=== PATIENT | female | born 1980 | race Hispanic/Latino ===

== ENCOUNTER 2016-10-13 14:27 | Emergency (ER) | payer SELFPAY ==
[~2016-10-13] VITALS: Ht 154.9 cm; Wt 70.5 kg
[2016-10-13 15:16] LABS: HEMATOCRIT 40.8 % (36.0-46.0); MCH 31.9 PG (29.0-34.0); MCHC 33.8 G/DL (30.0-36.0); MCV 94.4 FL (83-99); MEAN PLAT.VOLUME 9.8 uM^3 (9.5-12.4); PLATELET COUNT 276 K/uL (156-360); RBC DIS.WIDTH-CV 11.9 % (11.8-14.6); RBC DIS.WIDTH-SD 41.4 % (39-53); RED BLOOD COUNT 4.32 M/uL (3.80-5.20); WHITE BLOOD COUNT 7.7 K/uL (4.1-10.2)
[2016-10-13 15:21] LABS: ADD MIUA? YES; BILIRUBIN NEGATIVE; BLOOD MODERATE; COLOR STRAW ((YELLOW)); GLUCOSE (STRIP) NEGATIVE; KETONES NEGATIVE; LEUKOCYTES NEGATIVE; NITRITE NEGATIVE; PROTEIN (STRIP) NEGATIVE; SPECIFIC GRAVITY 1.004 (1.000-1.030); UROBILINOGEN 0.2 MG/DL (0.2-1.0)
[2016-10-13 15:24] LABS: BACTERIA RARE /HPF; EPITHELIAL CELLS RARE /HPF; MUCUS TRACE /LPF; RED BLOOD CELLS 0-5 /HPF (0-5); UCUL ADDED? NO; WHITE BLOOD CELLS 0-5 /HPF (0-5)
[2016-10-13 16:18] LABS: EOSINOPHIL (%) 0.4 % (0-5); IMMATURE GRANULOCYTE (%) 0.3 % (0.0-0.7); INSTRUMENT ABS NEUTROPHIL CT 5.1 K/uL; LYMPHOCYTE COUNT 1.8 K/uL (1.0-2.8); MONOCYTE (%) 5.8 % (3-12); MONOCYTE COUNT 0.4 K/uL (0-0.8); NEUTROPHIL COUNT 5.1 K/uL (1.8-6.4)
[2016-10-13 16:21] LABS: CHLORIDE 106 mEq/L (99-109); POTASSIUM 3.6 mEq/L (3.7-5.4); SODIUM 138 mEq/L (136-147)
[2016-10-13 16:23] LABS: GLUCOSE 107 mg/dL (70-99)
[2016-10-13 16:25] LABS: ANION GAP 10 MEQ/L (2-14); TOTAL BILIRUBIN 0.5 mg/dL (0.0-1.0)
[2016-10-13 16:27] LABS: ALKALINE PHOSPHATASE 91 IU/L (3-129); GFR ESTIMATE (CALCULATED) > 59 mL/min/
[2016-10-13 16:28] LABS: UREA NITROGEN (BUN) 8 mg/dL (9-23)
[2016-10-13 17:04] VITALS: BP 109/59
== END 2016-10-13 17:06 | disposition home or self-care (01) ==
LOC: EME 14:27
PROVIDERS: Nurse Practitioner Family
DX: O20.9 Hemorrhage in early pregnancy, unspecified (principal); Z3A.01 Less than 8 weeks gestation of pregnancy
CPT/HCPCS: 76801; 80053; 81003; 84702; 85025; 85027; 99281; 99285

== ENCOUNTER 2017-05-16 06:25 | Inpatient (IN) | payer BC, OTHER ==
[2017-05-16] VITALS (8 sets, daily range): BP systolic 100–129; BP diastolic 57–73
[~2017-05-16] VITALS: Ht 154.9 cm; Wt 76.4 kg
[~2017-05-16 06:25] MED LIST: PRENATAL TABLE1 EAC3 PO
[2017-05-16 07:40] LABS: BASOPHIL (%) 0.4 % (0-1); EOSINOPHIL (%) 0.4 % (0-5); HEMOGLOBIN 12.1 G/DL (11.9-15.5); IMMATURE GRANULOCYTE (%) 0.4 % (0.0-0.7); LYMPHOCYTE (%) 32.3 % (15-42); LYMPHOCYTE COUNT 1.6 K/uL (1.0-2.8); MCHC 34.6 G/DL (30.0-36.0); MCV 95.4 FL (83-99); MONOCYTE (%) 7.3 % (3-12); MONOCYTE COUNT 0.4 K/uL (0-0.8); NEUTROPHIL (%) 59.2 % (45-76); NEUTROPHIL COUNT 2.9 K/uL (1.8-6.4); PLATELET COUNT 197 K/uL (156-360); RBC DIS.WIDTH-CV 12.7 % (11.8-14.6); RBC DIS.WIDTH-SD 43.7 % (39-53); RED BLOOD COUNT 3.67 M/uL (3.80-5.20)
[2017-05-16 18:52] LABS: HEMATOCRIT 26.7 % (36.0-46.0); MCH 33.6 PG (29.0-34.0); MCHC 34.8 G/DL (30.0-36.0); MCV 96.4 FL (83-99); RBC DIS.WIDTH-CV 12.7 % (11.8-14.6); WHITE BLOOD COUNT 10.1 K/uL (4.1-10.2)
[2017-05-16 19:37] LABS: HEMOGLOBIN 9.3 G/DL (11.9-15.5); RED BLOOD COUNT 2.77 M/uL (3.80-5.20)
[2017-05-16 19:38] LABS: PLAT.SUFFICIENCY DECREASED; PLATELET COUNT 105 K/uL (156-360)
[2017-05-17 07:10] LABS: BASOPHIL (%) 0.3 % (0-1); EOSINOPHIL (%) 0.9 % (0-5); EOSINOPHIL COUNT 0.1 K/uL (0-0.3); HEMATOCRIT 27.6 % (36.0-46.0); HEMOGLOBIN 9.1 G/DL (11.9-15.5); IMMATURE GRANULOCYTE (%) 0.4 % (0.0-0.7); LYMPHOCYTE (%) 16.1 % (15-42); LYMPHOCYTE COUNT 1.6 K/uL (1.0-2.8); MCV 97.2 FL (83-99); MONOCYTE (%) 4.5 % (3-12); MONOCYTE COUNT 0.4 K/uL (0-0.8); NEUTROPHIL (%) 77.8 % (45-76); NEUTROPHIL COUNT 7.6 K/uL (1.8-6.4); PLATELET COUNT 121 K/uL (156-360); RBC DIS.WIDTH-SD 45.4 % (39-53); RED BLOOD COUNT 2.84 M/uL (3.80-5.20); WHITE BLOOD COUNT 9.8 K/uL (4.1-10.2)
[2017-05-17 17:54] LABS: HEMATOCRIT 26.6 % (36.0-46.0); HEMOGLOBIN 8.9 G/DL (11.9-15.5); MCH 32.7 PG (29.0-34.0); MCHC 33.5 G/DL (30.0-36.0); MCV 97.8 FL (83-99); PLATELET COUNT 130 K/uL (156-360); RBC DIS.WIDTH-CV 13.2 % (11.8-14.6); RBC DIS.WIDTH-SD 46.2 % (39-53); RED BLOOD COUNT 2.72 M/uL (3.80-5.20); WHITE BLOOD COUNT 11.1 K/uL (4.1-10.2)
[2017-05-18 07:06] VITALS: BP 117/67
[2017-05-18 17:00] LABS: HEMATOCRIT 25.9 % (36.0-46.0); HEMOGLOBIN 8.7 G/DL (11.9-15.5); MCH 32.2 PG (29.0-34.0); MCHC 33.6 G/DL (30.0-36.0); MCV 95.9 FL (83-99); PLATELET COUNT 144 K/uL (156-360); WHITE BLOOD COUNT 8.9 K/uL (4.1-10.2)
[2017-05-18 17:36] VITALS: BP 129/65
[2017-05-19 03:30] VITALS: BP 100/54
[2017-05-19 07:19] VITALS: BP 107/63
[2017-05-19] MEDS ORDERED: ENDOCET 5-3251 EACH PO (07:23)
[2017-05-19] MEDS ORDERED: FERROUS SULFAT325 MG PO (07:23)
[2017-05-19] MEDS ORDERED: IBUPROFEN800 MG PO (07:23)
== END 2017-05-19 15:03 | disposition home or self-care (01) | DRG 765 ==
LOC: 2SOUTH → 2WEST 06:25 → 2SOUTH 10:23 → 2WEST 05-19 15:03
PROVIDERS: Obstetrics & Gynecology
DX: O34.211 Maternal care for low transverse scar from previous cesarean delivery (principal); Z30.2 Encounter for sterilization; O72.0 Third-stage hemorrhage; O77.0 Labor and delivery complicated by meconium in amniotic fluid; O99.02 Anemia complicating childbirth; D62 Acute posthemorrhagic anemia; Z3A.39 39 weeks gestation of pregnancy; Z37.0 Single live birth; O99.213 Obesity complicating pregnancy, third trimester; E66.3 Overweight; Z68.27 Body mass index [BMI] 27.0-27.9, adult
CPT/HCPCS: 76856; 85025; 85027; 86850; 86900; 86901; 88302; 88305; J0131; J0171; J0690; J1100; J1170; J1885; J2210; J2250; J2274; J2405; J2590; J3010; J7050; J7120